=== PATIENT | female | born 1980 | race African-American/Black ===

== ENCOUNTER 2018-03-18 11:45 | Emergency (ER) | payer MEDICAID ==
[2018-03-18] MEDS ORDERED: DIPHENHYDRAMINE HCL 50 MG/ML VIAL IV ONE (12:31)
[2018-03-18] MEDS ORDERED: METOCLOPRAMIDE HCL INJ/PF 10 MG/2 ML SDV IV ONE (12:31)
[2018-03-18] MEDS ORDERED: DEXAMETHASONE 4 MG TABLET PO ONE (12:32)
[2018-03-18] MEDS ORDERED: ACETAMINOPHEN 325 MG TABLET PO ONE (12:32)
[2018-03-18] MEDS ORDERED: NORMAL SALINE 1000 ML 1,000 ML IV ONE (12:32)
--- NOTE | 2018-03-18 12:35 | ER Document Report ---
ED General - General Chief Complaint: Headache >24 hrs old Stated Complaint: HEADACHE Time Seen by Provider: 03/18/18 12:31 Mode of Arrival: Ambulatory Information source: Patient Notes: 37-year-old female with no reported past medical history presents with complaint of right-sided headache, right ear pain that started 3 days prior to arrival. Patient describes the pain as intermittent, throbbing and not relieved with aspirin for which she took once. She denies any fever, chills, sore throat, nasal congestion, blurred vision, weakness, slurred speech, head injury. She denies sick contacts. She is otherwise healthy and takes no medications daily. TRAVEL OUTSIDE OF THE [place] IN LAST 30 DAYS: No - HPI Onset: Other Onset/Duration: Gradual, Intermittent Quality of pain: Burning, Throbbing Severity: Moderate Associated symptoms: Earache, Headache. denies: Chest pain, Nonproductive cough , Productive cough, Fever, Nausea, Vomiting Exacerbated by: Denies Relieved by: Denies Similar symptoms previously: Yes Recently seen / treated by doctor: No - Related Data Allergies/Adverse Reactions: No Known Allergies Allergy (Verified 03/18/18 12:21) Past Medical History - General Information source: Patient, [facility] Records - Social History Smoking Status: Current Every Day Smoker Cigarette use (# per day): Yes - 3 Chew tobacco use (# tins/day): No Smoking Education Provided: Yes - Smoking cessation counseling was provided for 4 minutes at the bedside Frequency of alcohol use: None Drug Abuse: None Lives with: Family Family History: Reviewed & Not Pertinent Patient has suicidal ideation: No Patient has homicidal ideation: No - Medical History Medical History: Negative Renal/ Medical History: Denies: Hx Peritoneal Dialysis Past Surgical History: Reports: Hx Orthopedic Surgery - right hip Review of Systems - Review of Systems Notes: REVIEW OF SYSTEMS: CONSTITUTIONAL : Denies fever, or sweats. Denies recent illness. Denies weight loss, recent hospitalizations. EENT: Denies visual changes, eye pain. Denies sore throat, oral lesions, difficulty swallowing. CARDIOVASCULAR: Denies chest pain. Denies palpitations. Denies lower extremity edema. RESPIRATORY: Denies cough. Denies shortness of breath, wheezing. GASTROINTESTINAL: Denies abdominal pain or distention. Denies nausea, vomiting , or diarrhea. Denies blood in vomitus, stools, or per rectum. Denies black, tarry stools. Denies constipation. GENITOURINARY: Denies difficulty urinating, painful urination, frequency, blood in urine, or vaginal discharge. MUSCULOSKELETAL: Denies back or neck pain or stiffness. Denies joint pain or swelling. SKIN: Denies rash, lesions or sores. HEMATOLOGIC : Denies easy bruising or bleeding. LYMPHATIC: Denies swollen glands. NEUROLOGICAL: Denies confusion or altered mental status. Denies loss of consciousness. Denies dizziness or lightheadedness. Denies weakness or paralysis. Denies problems difficulty with ambulation, slurred speech. Denies sensory loss, numbness, or tingling. Denies seizures. PSYCHIATRIC: Denies anxiety or stress. Denies depression, suicidal ideation, or homicidal ideation. Denies visual or auditory hallucinations. Constitutional: Fever Physical Exam - Vital signs Vitals: Pulse Resp BP Pulse Ox 72 16 121/50 L 100 03/18/18 12:02 03/18/18 12:02 03/18/18 12:02 03/18/18 12:02 - Notes Notes: Presentation of a headache that appears to be most consistent with tension versus migrainous type headache. Headache was not maximal in onset, patient has no focal neurologic deficits, no nuchal rigidity, vital signs within normal limits, no papilledema, and patient is overall well in appearance. Based on clinical history and examination I do not suspect an acute subarachnoid hemorrhage, dural venous sinus thrombosis, acute meningitis, or intercranial mass. Given my low clinical suspicion for any acute life-threatening etiology, I do not feel advanced neuro imaging or laboratory testing is indicated at this time. Will proceed with headache cocktail and reassess. Patient received IV fluids, Reglan, Benadryl, Decadron and Toradol during her ED course. On reevaluation patient is sleeping soundly and when she awoke she reported an improvement of her earache and headache. Patient was evaluated and treated as appropriate for the patient's presenting symptoms and complaint, with consideration of any critical or life threatening conditions that may be associated with their obtained history and exam as noted above. All results were discussed with patient. Patient provided the opportunity to ask questions, and express concerns. Patient was educated on treatments based on their presumed diagnosis as noted above. At this time we will discharge the patient with return precautions and follow-up recommendations. Verbal discharge instructions given a the bedside. Medication warnings reviewed. Patient is in agreement with this plan and has verbalized understanding of return precautions. After careful consideration I feel that that patient can be safely discharged from the emergency department, they were advised to followup with a primary care physician in 2-3 days. Dictation on this chart was performed using voice recognition software and may result in unintended grammatical, spelling, syntax or errors. Course - Vital Signs Vital signs: Temp Pulse Resp BP Pulse Ox 97.7 F 72 18 140/81 H 100 03/18/18 13:58 03/18/18 13:58 03/18/18 13:58 03/18/18 13:58 03/18/18 13:58 Discharge - Discharge Clinical Impression: Ear pain, right, Elevated blood pressure reading Headache Qualifiers: Headache type: unspecified Headache chronicity pattern: unspecified pattern Intractability: not intractable Qualified Code(s): R51 - Headache Condition: Good Disposition: HOME, SELF-CARE Instructions: Headache ([facility]) Additional Instructions: You have been seen in the Emergency Department (ED) for a headache. Please use Tylenol (acetaminophen) or Motrin (ibuprofen), Reglan and Benadryl as needed for symptoms, but only as written on the box. As we have discussed, please follow up with your primary care doctor as soon as possible regarding today's ED visit and your headache symptoms. Call your doctor or return to the ED if you have a worsening headache, sudden and severe headache, confusion, slurred speech, facial droop, weakness or numbness in any arm or leg, extreme fatigue, or other symptoms that concern you. Prescriptions: Metoclopramide HCl [Reglan 10 mg Tablet] 1 - 2 tab PO Q8H PRN #10 tablet PRN Reason: Forms: Elevated Blood Pressure, Smoking Cessation Education, Return to Work
[2018-03-18] MEDS ORDERED: PSEUDOEPHEDRINE HCL 30 MG TABLET PO ONE (14:00)
[2018-03-18] MEDS ORDERED: KETOROLAC TROMETHAMINE INJ/PF 30 MG/1 ML SDV IV ONE (14:00)
[2018-03-18] MEDS ORDERED: LORAZEPAM 1 MG TABLET PO ONE (14:01)
[2018-03-18 15:06] VITALS: BP 112/61
== END 2018-03-18 15:07 | disposition home or self-care (01) ==
LOC: ER 11:45
DX: R51 Headache (principal); H92.01 Otalgia, right ear; R03.0 Elevated blood-pressure reading, without diagnosis of hypertension; F17.210 Nicotine dependence, cigarettes, uncomplicated; Z71.6 Tobacco abuse counseling
CPT/HCPCS: 99406; 99284; 96361; 96374; 96375; J3490 ×2; J1200; J1885; J2765; J7030

== ENCOUNTER 2018-03-18 23:32 | Emergency (ER) | payer MEDICAID ==
[2018-03-19] MEDS ORDERED: CARBAMAZEPINE 200 MG TABLET PO ONE (00:42)
[2018-03-19] MEDS ORDERED: CARBAMAZEPINE 200 MG TABLET ONE (01:06)
--- NOTE | 2018-03-19 01:23 | RADIOLOGY REPORT (SQ) ---
CT HEAD WITHOUT IV CONTRAST HISTORY: Right facial pain, presumed trigeminal neuralgia. COMPARISON: None. TECHNIQUE: CT scan of the brain without IV contrast. This exam was performed according to our departmental dose-optimization program, which includes automated exposure control, adjustment of the mA and/or kV according to patient size and/or use of iterative reconstruction technique. FINDINGS: The ventricles, cisterns, and sulci are age-appropriate. No focal white matter lesions are seen. The fried-white matter differentiation is preserved without evidence of acute territorial infarction. No intracranial hemorrhage, midline shift, or extra-axial fluid collection is identified. The paranasal sinuses and mastoid air cells are clear. Incidentally noted pneumatization of petrous apices are seen. The calvarium is intact. IMPRESSION: No acute intracranial abnormality.
[2018-03-19] MEDS ORDERED: METOCLOPRAMIDE HCL 10 MG TABLET PO ONE (02:23)
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
[2018-03-19] MEDS ORDERED: HYDROCODONE/ACETAMINOPHEN 5-325 MG (6 TAB/ER DISP) PO PRN (03:48)
[2018-03-19 03:52] VITALS: BP 123/75
== END 2018-03-19 04:00 | disposition home or self-care (01) ==
LOC: ER 23:32
DX: R51 Headache (principal); T45.0X6A Underdosing of antiallergic and antiemetic drugs, initial encounter; Z91.128 Patient's intentional underdosing of medication regimen for other reason; Z91.14 Patient's other noncompliance with medication regimen; F17.200 Nicotine dependence, unspecified, uncomplicated; Z87.820 Personal history of traumatic brain injury
CPT/HCPCS: 99284; 70450; J3490 ×2

== ENCOUNTER 2018-07-09 21:59 | Emergency (ER) | payer OTHER, BC ==
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
[2018-07-10 02:46] LABS: APPEARANCE,URINE SLIGHTLY-CLOUDY; BILIRUBIN,URINE NEGATIVE (NEGATIVE); COLOR,URINE YELLOW; GLUCOSE, URINE NEGATIVE (NEGATIVE); KETONES,URINE NEGATIVE (NEGATIVE); LEUKOCYTE ESTERASE,URINE NEGATIVE (NEGATIVE); NITRITE,URINE NEGATIVE (NEGATIVE); PROTEIN,URINE NEGATIVE (NEGATIVE); URINE SPECIFIC GRAVITY 1.017
[2018-07-10] MEDS ORDERED: KETOROLAC TROMETHAMINE 60 MG/2 ML SDV IM ONE (02:48)
--- NOTE | 2018-07-10 03:49 | RADIOLOGY REPORT (SQ) ---
EXAM DESCRIPTION: XR HIP 2 OR MORE VIEWS COMPLETED DATE/TME: 07/10/2018 02:47 CLINICAL HISTORY: 37 years Female, Pain COMPARISON: None. Findings: Osteotomy plate and screw fixation of the right acetabulum. Mild osteoarthritis of the right hip joint.. Bones, joints, and soft tissues of the RIGHT XR HIP 2 OR MORE VIEWS appear otherwise unremarkable. IMPRESSION: No acute findings.
--- NOTE | 2018-07-10 04:02 | RADIOLOGY REPORT (SQ) ---
EXAM DESCRIPTION: XR LUMBAR SPINE ANTEROPOSTERIOR, LATERAL, AND OBLIQUES COMPLETED DATE/TME: 07/10/2018 02:48 CLINICAL HISTORY: 37 years Female, Back Pain COMPARISON: None. Findings: Normal alignment and curvature. Vertebral and intervertebral heights are maintained. Partial visualization of hardware fixation at the right iliac ala. Extraspinal structures are grossly intact. IMPRESSION: No acute findings of XR LUMBAR SPINE ANTEROPOSTERIOR, LATERAL, AND OBLIQUES. .
--- NOTE | 2018-07-10 04:31 | RADIOLOGY REPORT (SQ) ---
EXAM DESCRIPTION: XR KNEE 3 VIEWS COMPLETED DATE/TME: 07/10/2018 02:47 CLINICAL HISTORY: 37 years Female, Pain COMPARISON: None. Findings: 1.1 cm x 0.3 cm ossicular calcification at the medial aspect of the right medial femoral condyle may indicate chronic medial collateral ligamentous injury. Minimal osteophytosis of the lateral femoral condyle. Bones, joints, and soft tissues of the RIGHT XR KNEE 3 VIEWS appear otherwise unremarkable. IMPRESSION: No acute findings.
[2018-07-10 04:48] VITALS: BP 106/53
== END 2018-07-10 05:00 | disposition home or self-care (01) ==
LOC: ER 21:59
DX: M54.5 Low back pain (principal); M25.551 Pain in right hip; M25.561 Pain in right knee; V43.52XA Car driver injured in collision with other type car in traffic accident, initial encounter
CPT/HCPCS: 99283; 96372; 81025; 81001; 73502; 73562; 72110; J1885

== ENCOUNTER 2018-09-01 23:39 | Emergency (ER) | payer BC, MEDICAID, OTHER ==
[2018-09-02] MEDS ORDERED: ACETAMINOPHEN 325 MG TABLET PO ONE (01:52)
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
[2018-09-02 02:33] LABS: APPEARANCE,URINE CLEAR; BILIRUBIN,URINE NEGATIVE (NEGATIVE); COLOR,URINE YELLOW; GLUCOSE, URINE NEGATIVE (NEGATIVE); KETONES,URINE NEGATIVE (NEGATIVE); LEUKOCYTE ESTERASE,URINE NEGATIVE (NEGATIVE); NITRITE,URINE NEGATIVE (NEGATIVE); PROTEIN,URINE NEGATIVE (NEGATIVE); URINE SPECIFIC GRAVITY 1.011; UROBILINOGEN,URINE NEGATIVE mg/dL (<2.0)
--- NOTE | 2018-09-02 06:55 | ER Document Report ---
ED Headache - General Chief Complaint: Headache Stated Complaint: HEADACHE Time Seen by Provider: 09/02/18 01:49 Mode of Arrival: Ambulatory Notes: 37-year-old female no significant past medical history other than hypertension to the emergency department chief complaint of headache. Not the worst headache of her life. Not sudden onset. Indolent over the last week. Denies any fever, chills, sweats. States that she does have some body aches but no other major symptoms. Some photophobia. Some mild nausea located in the temples and frontal area. Denies any large nasal discharge, no sore throat or other issues at this time. TRAVEL OUTSIDE OF THE [place] IN LAST 30 DAYS: No - HPI Patient complains to provider of: "Migraine" Onset was: Cannot pinpoint Timing: Still present Quality of pain: Achy - Related Data Allergies/Adverse Reactions: No Known Allergies Allergy (Verified 07/10/18 02:32) Past Medical History - General Information source: Patient - Social History Smoking Status: Current Some Day Smoker Cigarette use (# per day): Yes Frequency of alcohol use: None Drug Abuse: None Lives with: Family Family History: Reviewed & Not Pertinent Patient has suicidal ideation: No Patient has homicidal ideation: No Renal/ Medical History: Denies: Hx Peritoneal Dialysis Past Surgical History: Reports: Hx Orthopedic Surgery - right hip Review of Systems - Review of Systems Notes: Constitutional: denies: Chills, Diaphoresis, Fever, Malaise, Weakness EENT: denies: Eye discharge, Blurred vision, Tearing, Double vision, Nose congestion, Nose discharge, Throat swelling, Mouth pain Cardiovascular: denies: Palpitations, Heart racing, Orthopnea, Dyspnea, Chest pain Respiratory: denies: Cough, Hurts to breathe, Wheezing, Shortness of breath Gastrointestinal: denies: Abdominal pain, Diarrhea, Nausea, Vomiting, Black sto ols, bright red blood in stool Genitourinary: denies: Burning, Dysuria, Discharge, Frequency, Flank pain, Hematuria Musculoskeletal: denies: Joint pain, Joint swelling, Muscle pain, Muscle stiffness, back pain Hematologic/Lymphatic: denies: Anemia, Easy bleeding, Easy bruising, Blood clots Neurological/Psychological: denies: Confusion, Dementia, Depression, Loss of consciousness. Positive for headache Skin: No lesions, no masses, no skin breakdown, no abscesses Physical Exam - Vital signs Vitals: Temp Pulse Resp BP Pulse Ox 99.8 F 103 H 20 134/76 H 99 09/02/18 00:32 09/02/18 00:32 09/02/18 00:32 09/02/18 00:32 09/02/18 00:32 Interpretation: Normal - General General appearance: Appears well, Alert - HEENT Head: Normocephalic, Atraumatic Eyes: Normal Conjunctiva: Normal Pupils: PERRL Ears: Normal Tympanic membrane: Normal Mucous membranes: Normal Pharynx: Normal Neck: Normal. No: Brudzinski, Kernig's, Lymphadenopathy, Meningismus, Neck mass - Respiratory Respiratory status: No respiratory distress Chest status: Nontender Breath sounds: Normal Chest palpation: Normal - Cardiovascular Rhythm: Regular Heart sounds: Normal auscultation Murmur: No - Abdominal Inspection: Normal Distension: No distension Bowel sounds: Normal Tenderness: Nontender Organomegaly: No organomegaly - Back Back: Normal, Nontender - Extremities General upper extremity: Normal inspection, Nontender, Normal color, Normal ROM, Normal temperature General lower extremity: Normal inspection, Nontender, Normal color, Normal ROM, Normal temperature, Normal weight bearing. No: Luly's sign - Neurological Neuro grossly intact: Yes Cognition: Normal Orientation: AAOx4 Yariel Coma Scale Eye Opening: Spontaneous Yariel Coma Scale Verbal: Oriented Yariel Coma Scale Motor: Obeys Commands [place] Coma Scale Total: 15 Speech: Normal Motor strength normal: LUE, RUE, LLE, RLE Sensory: Normal - Psychological Associated symptoms: Normal affect, Normal mood - Skin Skin Temperature: Warm Skin Moisture: Dry Skin Color: Normal Course - Re-evaluation Re-evalutation: 09/02/18 11:01 Patient describes a headache that has been indolent for the last week. No meningismus signs or symptoms. No fever here. Temperature checked multiple times by myself. Patient responded quite well to migraine treatment. Did not indicate there is any other major neurological symptoms, or other symptoms that would be concerning for subarachnoid hemorrhage or meningitis. At this time I am recommending patient be discharged in stable condition and his symptoms return to re-return to the emergency department for repeat evaluation. Laboratory 09/02/18 01:53 Urine Color YELLOW Urine Appearance CLEAR Urine pH 7.0 Ur Specific [place] 1.011 Urine Protein NEGATIVE Urine Glucose (UA) NEGATIVE Urine Ketones NEGATIVE Urine Blood NEGATIVE Urine Nitrite NEGATIVE Urine Bilirubin NEGATIVE Urine Urobilinogen NEGATIVE Ur Leukocyte Esterase NEGATIVE Urine WBC (Auto) 0 Urine RBC (Auto) 0 Squamous Epi Cells Auto 4 Urine Ascorbic Acid NEGATIVE Urine HCG, Qual NEGATIVE - Vital Signs Vital signs: Temp Pulse Resp BP Pulse Ox 98.2 F 81 18 112/55 L 100 09/02/18 06:21 09/02/18 06:21 09/02/18 06:21 09/02/18 06:21 09/02/18 06:21 Discharge - Discharge Clinical Impression: Headache Qualifiers: Headache type: unspecified Headache chronicity pattern: unspecified pattern Intractability: not intractable Qualified Code(s): R51 - Headache Condition: Good Disposition: HOME, SELF-CARE Instructions: Antinausea Medication ([facility]), Use of Diphenhydramine, Headache ([facility]), Reglan ([facility]), Toradol Injection ([facility]) Additional Instructions: Please return immediately if your symptoms are getting worse, stiffness in the neck, high fever, chest pain or other symptoms. Forms: Return to Work
[2018-09-02] MEDS ORDERED: DIPHENHYDRAMINE HCL 50 MG/ML VIAL IV ONE (07:21)
[2018-09-02] MEDS ORDERED: KETOROLAC TROMETHAMINE INJ/PF 30 MG/1 ML SDV IV ONE (07:21)
[2018-09-02] MEDS ORDERED: METOCLOPRAMIDE HCL INJ/PF 10 MG/2 ML SDV IV ONE (07:21)
[2018-09-02 11:04] VITALS: BP 117/71
== END 2018-09-02 11:17 | disposition home or self-care (01) ==
LOC: ER 23:39
DX: R51 Headache (principal); R11.0 Nausea; I10 Essential (primary) hypertension; F17.210 Nicotine dependence, cigarettes, uncomplicated
CPT/HCPCS: 99284; 96374; 96375; 81025; 81001; J3490; J1200; J1885; J2765

== ENCOUNTER 2019-09-13 20:03 | Emergency (ER) | payer BC, MEDICAID, OTHER ==
--- NOTE | 2019-09-13 20:20 | ER Document Report ---
ED Medical Screen (RME) - General Chief Complaint: Vag Bleeding, +preg <12wks Stated Complaint: VAGINAL BLEEDING PREG 6 WKS Time Seen by Provider: 09/13/19 20:14 Mode of Arrival: Ambulatory Information source: Patient Notes: Patient is a 38-year-old female comes emergency room stating that she has done 5 home test and all 5 have been positive. She is 38-year-old female she states that last evening she started with a little cramping and when she wiped she noticed some bloody tinged material on the tissue. That is gone on and off throughout today she has had minimal cramping today and denies any nausea vomiting or diarrhea. She also states that her last menstrual period was on 07/31/2019. She is 1 para 1 Physical examination: Patient is a well-nourished well-developed 38-year-old female no apparent distress on physical exam. : Cardiac showed slightly tachycardic at 101 bpm with no murmur noted. Lungs: Bilateral breath sounds with breath sounds increased clear to auscultation. Abdomen: Bowel sounds present all 4 quads. Nontender to palpate throughout. This is done while patient is in a sitting position. I have greeted and performed a rapid initial assessment of this patient. Comprehensive ED assessment and evaluation the patient, analysis of the test results and completion of the medical decision-making process will be conducted by an additional ED provider. TRAVEL OUTSIDE OF THE [place] IN LAST 30 DAYS: No - Related Data Allergies/Adverse Reactions: No Known Allergies Allergy (Verified 09/13/19 20:14) Past Medical History Renal/ Medical History: Denies: Hx Peritoneal Dialysis Past Surgical History: Reports: Hx Orthopedic Surgery - right hip Physical Exam - Vital signs Vitals: Temp Pulse Resp BP Pulse Ox 98.5 F 101 H 14 149/91 H 100 09/13/19 20:06 09/13/19 20:06 09/13/19 20:06 09/13/19 20:06 09/13/19 20:06 Course - Vital Signs Vital signs: Temp Pulse Resp BP Pulse Ox 98.5 F 101 H 14 149/91 H 100 09/13/19 20:06 09/13/19 20:06 09/13/19 20:06 09/13/19 20:06 09/13/19 20:06
[2019-09-13 20:55] LABS: ABSOLUTE BASOPHILS # (AUTO) 0.1 10^3/uL (0.0-0.2); ABSOLUTE EOSINOPHILS # (AUTO) 0.3 10^3/uL (0.0-0.6); ABSOLUTE LYMPHOCYTES (AUTO) 2.6 10^3/uL (0.5-4.7); ABSOLUTE MONOCYTES (AUTO) 0.4 10^3/uL (0.1-1.4); EOSINOPHILS % (AUTO) 3.2 % (0-6); HEMATOCRIT 39.7 % (36.0-47.0); HEMOGLOBIN 13.9 g/dL (12.0-15.5); LYMPHOCYTES % (AUTO) 31.1 % (13-45); MEAN CORPUSCULAR HEMOGLOBIN 30.3 pg (27.0-33.4); MEAN CORPUSCULAR HGB CONC 35.1 g/dL (32.0-36.0); MEAN CORPUSCULAR VOLUME 86 fl (80-97); MONOCYTES % (AUTO) 4.3 % (3-13); PLATELET COUNT 296 10^3/uL (150-450); RED CELL DISTRIBUTION WIDTH 14.3 % (11.5-14.0); SEGMENTED NEUTROPHILS % (AUTO) 60.4 % (42-78); TOTAL CELLS COUNTED % (AUTO) 100 %; WHITE BLOOD COUNT 8.2 10^3/uL (4.0-10.5)
[2019-09-13 21:07] LABS: BILIRUBIN,URINE NEGATIVE (NEGATIVE); GLUCOSE, URINE NEGATIVE (NEGATIVE); KETONES,URINE NEGATIVE (NEGATIVE); PROTEIN,URINE 30 mg/dL (NEGATIVE); URINE SPECIFIC GRAVITY 1.001; UROBILINOGEN,URINE NEGATIVE mg/dL (<2.0)
[2019-09-13 21:08] LABS: APPEARANCE,URINE SLIGHTLY HAZY; COLOR,URINE PINK
[2019-09-13 21:13] LABS: ALBUMIN 3.9 g/dL (3.5-5.0); ALKALINE PHOSPHATASE 58 U/L (38-126); ANION GAP 8 (5-19); ASPARTATE AMINO TRANSFERASE 22 U/L (14-36); BILIRUBIN,TOTAL 0.4 mg/dL (0.2-1.3); BLOOD UREA NITROGEN 7 mg/dL (7-20); CALCIUM 8.9 mg/dL (8.4-10.2); CARBON DIOXIDE 22 mmol/L (22-30); CHLORIDE 106 mmol/L (98-107); GLUCOSE 112 mg/dL (75-110); POTASSIUM 3.8 mmol/L (3.6-5.0); TOTAL PROTEIN 6.7 g/dL (6.3-8.2)
--- NOTE | 2019-09-13 22:07 | RADIOLOGY REPORT (SQ) ---
EXAM DESCRIPTION: US TRANSVAGINAL COMPLETED DATE/TME: 09/13/2019 20:19 CLINICAL HISTORY: 38 years, Female, Dysfunctional uterine bleeding during COMPARISON: None. TECHNIQUE: Emergent transvaginal ultrasound LIMITATIONS: None. FINDINGS: The uterus measures 9.5 x 5.1 x 5.1 cm. The endometrium measures 17 mm in thickness. No intrauterine gestational sac. Suspected blood products and complex fluid in the endometrial canal. Neither ovary is visualized likely due to their position in the pelvis. No adnexal cyst or mass. No free fluid IMPRESSION: There is no intrauterine gestational sac. No discrete adnexal mass, however ectopic cannot be excluded based on this exam. Correlate with beta hCG levels. Clinical follow-up recommended copyright 2010 [employer]- All Rights Reserved
--- NOTE | 2019-09-14 00:41 | ER Document Report ---
ED General - General Chief Complaint: Vag Bleeding, +preg <12wks Stated Complaint: VAGINAL BLEEDING PREG 6 WKS Time Seen by Provider: 09/13/19 20:14 Primary Care Provider: Gynecology [Provider Group] - Follow up as needed [facility] [Provider Group] - Follow up as needed [facility] [Provider Group] - Follow up as needed Mode of Arrival: Ambulatory TRAVEL OUTSIDE OF THE [place] IN LAST 30 DAYS: No - HPI Notes: 38-year-old female G2, P1 LMP 1720 presents with low volume vaginal bleeding/spotting and some mild midline pelvic cramping pain for the past 2 days, has not needed to use sanitary pads. Patient found to be on the home upreg few weeks ago. Patient has not had ultrasound confirmed IUP this . Patient denies discharge, fever, urinary symptoms, prior complications, flank pain, dizziness, syncope, chest pain, shortness of breath, bleeding diatheses. Patient denied smoking. - Related Data Allergies/Adverse Reactions: No Known Allergies Allergy (Verified 09/13/19 20:14) Past Medical History - General Information source: Patient, [facility] Records Last Menstrual Period: 07/31/2019 - Social History Smoking Status: Current Every Day Smoker Frequency of alcohol use: None Drug Abuse: None Family History: Reviewed & Not Pertinent Patient has homicidal ideation: No Renal/ Medical History: Denies: Hx Peritoneal Dialysis Past Surgical History: Reports: Hx Orthopedic Surgery - right hip Review of Systems - Review of Systems Notes: REVIEW OF SYSTEMS: CONSTITUTIONAL : Denies fever, chills, or sweats. EENT: Denies recent cold/sinus symptoms, denies throat pain CARDIOVASCULAR: Denies chest pain, [employer]: Denies cough, denies shortness of breath. GASTROINTESTINAL: Denies abdominal pain, nausea/vomiting. GENITOURINARY: Denies difficulty urinating, painful urination. FEMALE GENITOURINARY: +abnormal vaginal bleeding, -vaginal discharge. MUSCULOSKELETAL: Denies neck pain, back pain. SKIN: Denies rash or skin lesions. HEMATOLOGIC : Denies easy bruising or bleeding. LYMPHATIC: Denies swollen, enlarged glands. NEUROLOGICAL: Denies headache, denies change in gait. PSYCHIATRIC: Denies anxiety or stress or depression. Physical Exam - Vital signs Vitals: Temp Pulse Resp BP Pulse Ox 98.5 F 101 H 14 149/91 H 100 09/13/19 20:06 09/13/19 20:06 09/13/19 20:06 09/13/19 20:06 09/13/19 20:06 - Notes Notes: PHYSICAL EXAMINATION: GENERAL: Well-appearing, well-nourished and in no acute distress. HEAD: Atraumatic, normocephalic. EYES: Pupils equal round and appropriate constriction, sclera anicteric, conjunctiva are normal. ENT: nares patent, moist mucous membranes. NECK: Normal range of motion, supple without lymphadenopathy LUNGS: Breath sounds clear to auscultation bilaterally and equal. No wheezes rales or rhonchi. HEART: Regular rate and rhythm without murmurs ABDOMEN: Soft, nontender, no guarding, no masses, no CVAT PELVIC: Normal external genitalia, scant dark blood in vaginal vault, no discharge, office closed, no CMT, no adnexal tenderness or masses EXTREMITIES: Normal range of motion, no pitting or edema. No cyanosis. NEUROLOGICAL: Awake, alert, conversing appropriately, moves all extremities spontaneously. PSYCH: Normal mood, normal affect. SKIN: Warm, Dry, normal turgor, no rashes or lesions noted. Course - Re-evaluation Re-evalutation: 09/14/19 00:40 Vaginal bleeding and pelvic pain in , mild pain and low volume vaginal bleeding, patient very well-appearing, initially tachycardic on triage vitals but resolved at time of my exam without any intervention, who had likely been secondary to taking vitals immediately after exertion. Obtain the ultrasound to rule out ectopic and confirm IUP, unable to confirm IUP but hCG is in discriminatory zone so this is not an unexpected result. Patient had extensive discussion with patient regarding the importance of ruling out ectopic and importance of following up in 48 hours for repeat beta and possibly repeat ultrasound. Given extensive return to ED precautions which patient demonstrated understanding of. Rh+. Patient ready for discharge with outpatient follow-up, instructed patient to return to ED if unable to obtain 48-hour [facility] follow-up. - Vital Signs Vital signs: Temp Pulse Resp BP Pulse Ox 98.1 F 75 18 137/89 H 99 09/14/19 01:04 09/14/19 01:04 09/14/19 01:04 09/14/19 01:04 09/14/19 01:04 - Laboratory Result Diagrams: 09/13/19 20:37 09/13/19 20:37 Laboratory results interpreted by me: 09/13/19 09/13/19 09/13/19 20:30 20:37 20:37 RDW 14.3 H Sodium 136.4 L Glucose 112 H Beta HCG, Quant 1252.90 H Urine Protein 30 H Urine Blood LARGE H Urine HCG, Qual POSITIVE H Discharge - Discharge Clinical Impression: Vaginal bleeding affecting early Condition: Stable Disposition: HOME, SELF-CARE Additional Instructions: Vaginal Bleeding You are having an episode of abnormal bleeding. Causes of abnormal vaginal bleeding can include miscarriage or tubal , tumors such as cancer or benign fibroids, medication effects, or hormone imbalance. Testing can eliminate unsuspected , tumors, or infection as a cause. Pelvic Pain in Lower abdominal pain during can have many causes. We look for serious causes such as appendicitis, tubal , miscarriage, placental separation, or urinary tract infection. Less serious causes of pain include corpus luteum cyst (ovarian cyst of ) or stretching of the pelvic tissues by the enlarging uterus. Sometimes the pain comes from the bowels. If no specific cause for the pain is found, we attribute the pain to stretching of the uterine ligaments. This is called "round ligament strain." It is not dangerous. Just rest until the pain goes away. Call us or come back for reexamination if any problems occur, such as: (1) Pain that becomes more severe, steady, or becomes concentrated in one specific area. Also, pain that is more severe with movement or coughing. (2) Vomiting that persists or becomes more frequent. (3) Blood in the vomitus, urine, or bowel movements. Blood in the stool may have a tarry or black appearance. (4) Shaking chills or fever greater than 100 degrees. (5) The abdomen becomes more distended or swollen. (6) Bowel movements cease. (7) Vaginal bleeding. Follow-up with [facility] doctor in 48 hours, if unable to follow-up with [facility] doctor in 48 hours return to ED then. Return to ED immediately if you have worsening bleeding soaking a pad per hour, dizziness, fainting, chest pain, trouble breathing, fever, or any other worsening or alarming symptoms. Blood pressure was 149/91 in the emergency department. This is high. Have this rechecked by your primary doctor within 2 weeks. High blood pressure is associated with heart attack stroke and . Prescriptions: Vit/Iron Fum/Folic AC [ Tablet] 1 each PO QAM #7 tablet Referrals: Gynecology [Provider Group] - Follow up as needed [facility] [Provider Group] - Follow up as needed [facility] [Provider Group] - Follow up as needed
[2019-09-14 01:05] VITALS: BP 137/89
== END 2019-09-14 01:05 | disposition home or self-care (01) ==
LOC: ER 20:03
DX: O20.8 Other hemorrhage in early pregnancy (principal); O26.891 Other specified pregnancy related conditions, first trimester; R10.2 Pelvic and perineal pain; O99.331 Smoking (tobacco) complicating pregnancy, first trimester; F17.200 Nicotine dependence, unspecified, uncomplicated; Z3A.01 Less than 8 weeks gestation of pregnancy
CPT/HCPCS: 36415; 76817; 80053; 81001; 81025; 84702; 85025; 86900; 86901; 93976; 99284

== ENCOUNTER 2019-09-15 16:59 | Emergency (ER) | payer BC ==
--- NOTE | 2019-09-15 17:26 | ER Document Report ---
ED Medical Screen (RME) - General Mode of Arrival: Wheelchair Information source: Patient TRAVEL OUTSIDE OF THE [place] IN LAST 30 DAYS: No - General Chief Complaint: Vag Bleeding, +preg <12wks Stated Complaint: CRAMPING/VAGINAL BLEEDING Time Seen by Provider: 09/15/19 17:20 Notes: HPI; 38-year-old 2 para 1 approximately 6-week female presents to the emergency room complaining of worsening pelvic cramping. Patient was seen here Saturday evening for light vaginal bleeding and pain. Ultrasound could not rule out ectopic. Patient was scheduled to follow-up with her OB tomorrow for repeat quant and ultrasound but states the pain got more severe today. She did take Tylenol around 2 PM without relief. States she has not soaked a pad in full 24 hours. PE: Alert and oriented x3, moderate distress noted. Lungs: Clear to auscultation without rales, rhonchi, wheezes. Heart: Regular rate and rhythm without murmurs, rubs, gallops. I have greeted and performed a rapid initial assessment of this patient. A comprehensive ED assessment and evaluation of the patient, analysis of test results and completion of the medical decision making process will be conducted by additional ED providers. I have specifically instructed the patient or family members with the patient to immediately return to any nursing staff should anything change in the patient's condition or with their chief complaint. (JASYHREE SPENCER) - Related Data Allergies/Adverse Reactions: No Known Allergies Allergy (Verified 09/13/19 20:14) Past Medical History Renal/ Medical History: Denies: Hx Peritoneal Dialysis Past Surgical History: Reports: Hx Orthopedic Surgery - right hip Physical Exam - Vital signs Vitals: Temp Pulse Resp BP Pulse Ox 97.8 F 73 20 143/84 H 100 09/15/19 17:04 09/15/19 17:04 09/15/19 17:04 09/15/19 17:04 09/15/19 17:04 Course - Vital Signs Vital signs: Temp Pulse Resp BP Pulse Ox 97.8 F 73 20 143/84 H 100 09/15/19 17:19 09/15/19 17:04 09/15/19 17:04 09/15/19 17:04 09/15/19 17:04
--- NOTE | 2019-09-15 18:04 | ER Document Report ---
ED General - General Chief Complaint: Abdominal Cramping Stated Complaint: CRAMPING/VAGINAL BLEEDING Time Seen by Provider: 09/15/19 17:20 Mode of Arrival: Wheelchair Information source: Patient Notes: triage notes 09/15/19 17:20 - ED Nursing Note by DYLAN AVILA Acct Num: [id number] : 1980 Patient Age: 38 Pt presents to the ED for c/o abdominal pain. Pt is approx. 6wks . Reports she was seen here 2days ago for vaginal bleeding and cramping. States abdominal cramping has significantly worsened today. Reports going through approx. 1pad today. Pt has not seen OB yet. Pt is A&Ox4, breaths e/u, NAD. Trinity notes HPI; 38-year-old 2 para 1 approximately 6-week female presents to the emergency room complaining of worsening pelvic cramping. Patient was seen here Saturday evening for light vaginal bleeding and pain. Ultrasound could not rule out ectopic. Patient was scheduled to follow-up with her OB tomorrow for repeat quant and ultrasound but states the pain got more severe today. She did take Tylenol around 2 PM without relief. States she has not soaked a pad in full 24 hours. PE: Alert and oriented x3, moderate distress noted. Lungs: Clear to auscultation without rales, rhonchi, wheezes. Heart: Regular rate and rhythm without murmurs, rubs, gallops. my notes 38-year-old black female arrives with intense 10 out of 10 left inguinal pain of 3-day duration. Patient reports she has had spotting on her pad for the last several days. She had ultrasound done here at [place] which was inconclusive. She is O+. She is G2, P1 with a 13-year-old daughter. Patient denies any trauma denies any vaginal discharge denies any history of ectopic or STDs. She denies any dysuria fever chills cough or cold or coronavirus contact. Currently this nation and the world is under coronavirus pandemic. TRAVEL OUTSIDE OF THE [place] IN LAST 30 DAYS: No - HPI Onset: Other - x 3 days Onset/Duration: Sudden, Persistent, Worse Quality of pain: Fullness, Throbbing - LLQ Severity: Severe Pain Level: 5 Associated symptoms: None Exacerbated by: Denies Relieved by: Denies Similar symptoms previously: No Recently seen / treated by doctor: Yes - Related Data Allergies/Adverse Reactions: No Known Allergies Allergy (Verified 09/13/19 20:14) Past Medical History - General Information source: Patient - Social History Smoking Status: Current Every Day Smoker Cigarette use (# per day): Yes Chew tobacco use (# tins/day): No Smoking Education Provided: Yes Frequency of alcohol use: None Drug Abuse: None Lives with: Family Family History: Reviewed & Not Pertinent Patient has suicidal ideation: No Patient has homicidal ideation: No Renal/ Medical History: Denies: Hx Peritoneal Dialysis Past Surgical History: Reports: Hx Orthopedic Surgery - right hip Review of Systems - Review of Systems Constitutional: No symptoms reported EENT: No symptoms reported Cardiovascular: No symptoms reported Respiratory: No symptoms reported Gastrointestinal: No symptoms reported Genitourinary: No symptoms reported. denies: Dysuria, Discharge, Frequency, Flank pain, Hematuria, Incontinence, Pain, Urgency, Retention Female Genitourinary: See HPI, - 6 weeks gravid Musculoskeletal: No symptoms reported Skin: No symptoms reported Hematologic/Lymphatic: No symptoms reported Neurological/Psychological: No symptoms reported Physical Exam - Vital signs Vitals: Temp Pulse Resp BP Pulse Ox 97.8 F 73 20 143/84 H 100 09/15/19 17:04 09/15/19 17:04 09/15/19 17:04 09/15/19 17:04 09/15/19 17:04 Interpretation: Normal - General General appearance: Alert - HEENT Head: Normocephalic, Atraumatic Eyes: Normal Pupils: PERRL - Respiratory Respiratory status: No respiratory distress Chest status: Nontender Breath sounds: Normal Chest palpation: Normal - Cardiovascular Rhythm: Regular Heart sounds: Normal auscultation Murmur: No - Abdominal Inspection: Normal Distension: No distension Bowel sounds: Normal Tenderness: Tender - LLQ on p/p - Rectal Stool: Other - deferred - Genitourinary Speculum exam: Other - Patient has speculum exam on Saturday which pt reports she was told her cervix was closed - Back Back: Normal - Extremities General upper extremity: Normal inspection General lower extremity: Normal inspection - Neurological Neuro grossly intact: Yes - Is normal Cognition: Normal Orientation: AAOx4 Yariel Coma Scale Eye Opening: Spontaneous Yariel Coma Scale Verbal: Oriented [place] Coma Scale Motor: Obeys Commands Yariel Coma Scale Total: 15 Speech: Normal Motor strength normal: LUE, RUE, LLE, RLE Sensory: Normal - Psychological Associated symptoms: Normal affect - Skin Skin Temperature: Warm Skin Moisture: Dry Skin Color: Normal Course - Vital Signs Vital signs: Temp Pulse Resp BP Pulse Ox 97.8 F 73 20 143/84 H 100 09/15/19 17:19 09/15/19 17:04 09/15/19 17:04 09/15/19 17:04 09/15/19 17:04 - Laboratory Result Diagrams: 09/15/19 17:40 Laboratory results interpreted by me: 09/15/19 09/15/19 09/15/19 17:40 17:40 19:10 RDW 14.6 H Seg Neutrophils % 79.2 H Beta HCG, Quant 1107.50 H Urine Protein 30 H Urine Blood LARGE H Ur Leukocyte Esterase MODERATE H - Diagnostic Test Radiology reviewed: Reports reviewed Critical Care Note - Critical Care Note Total time excluding time spent on procedures (mins): 90 Comments: I discussed this case with Dr. Yary Arias. She advises patient following up on and calling office tomorrow. Patient when advised of the lab and ultrasound findings reports [facility] I advised calling by telephone to the clinic. Patient's ultrasound was again negative for IUP and no adnexal mass. Dr. Arias feels she may be having miscarriage at this time. Patient also has UTI and will be treated with Macrobid and with [employer] [place] pack Discharge - Discharge Clinical Impression: Vaginal bleeding affecting early UTI (urinary tract infection) Qualifiers: Urinary tract infection type: acute cystitis Hematuria presence: without hematuria Qualified Code(s): N30.00 - Acute cystitis without hematuria Condition: Good Disposition: HOME, SELF-CARE Additional Instructions: Follow-up with Dr. Arias SURGICAL ASSIST on September. Since your appointment is for tomorrow call the office tomorrow and advise them of your visit today in the ER. Ultrasound was negative today for intrauterine and was negative for any adnexal mass. You were positive for a UTI urinary tract infection and antibiotics will be written for you for this week. Take medicines as directed encourage fluids Prescriptions: Nitrofurantoin Monohyd/M-Cryst [Macrobid 100 mg Capsule] 100 mg PO BID #14 cap Forms: Return to Work
[2019-09-15] MEDS ORDERED: NORMAL SALINE 1000 ML 1,000 ML IV ONE (18:32)
[2019-09-15] MEDS ORDERED: HYDROMORPHONE HCL INJ/PF 2 MG/ML AMPULE IV ONE (18:33)
[2019-09-15] MEDS ORDERED: ONDANSETRON HCL INJ/PF 4 MG/2 ML SDV IV ONE (18:33)
[2019-09-15 18:55] LABS: ABSOLUTE EOSINOPHILS # (AUTO) 0.1 10^3/uL (0.0-0.6); ABSOLUTE LYMPHOCYTES (AUTO) 1.3 10^3/uL (0.5-4.7); ABSOLUTE MONOCYTES (AUTO) 0.3 10^3/uL (0.1-1.4); ABSOLUTE NEUT (AUTO) 6.4 10^3/uL (1.7-8.2); BASOPHILS % (AUTO) 0.5 % (0-2); EOSINOPHILS % (AUTO) 0.7 % (0-6); HEMATOCRIT 42.7 % (36.0-47.0); HEMOGLOBIN 14.3 g/dL (12.0-15.5); LYMPHOCYTES % (AUTO) 16.4 % (13-45); MEAN CORPUSCULAR HEMOGLOBIN 29.5 pg (27.0-33.4); MEAN CORPUSCULAR HGB CONC 33.5 g/dL (32.0-36.0); MEAN CORPUSCULAR VOLUME 88 fl (80-97); MONOCYTES % (AUTO) 3.2 % (3-13); PLATELET COUNT 328 10^3/uL (150-450); RED BLOOD COUNT 4.85 10^6/uL (3.72-5.28); RED CELL DISTRIBUTION WIDTH 14.6 % (11.5-14.0); SEGMENTED NEUTROPHILS % (AUTO) 79.2 % (42-78); TOTAL CELLS COUNTED % (AUTO) 100 %; WHITE BLOOD COUNT 8.1 10^3/uL (4.0-10.5)
[2019-09-15 20:13] LABS: APPEARANCE,URINE SLIGHTLY-CLOUDY; BILIRUBIN,URINE NEGATIVE (NEGATIVE); COLOR,URINE RED; GLUCOSE, URINE NEGATIVE (NEGATIVE); KETONES,URINE NEGATIVE (NEGATIVE); LEUKOCYTE ESTERASE,URINE MODERATE (NEGATIVE); NITRITE,URINE NEGATIVE (NEGATIVE); PROTEIN,URINE 30 mg/dL (NEGATIVE); UROBILINOGEN,URINE NEGATIVE mg/dL (<2.0)
--- NOTE | 2019-09-15 20:22 | RADIOLOGY REPORT (SQ) ---
EXAM: First trimester OB ultrasound CLINICAL INDICATION: Vaginal bleeding. COMPARISON: Ultrasound dated 09/13/2019 TECHNIQUE: First trimester OB ultrasound was performed. FINDINGS: Uterus: The uterus measures 9.6 x 5.1 x 6.0 cm. The endometrium measures 9.4 mm. The cervix is closed and measures 2.4 cm in length. Oval area of decreased echogenicity in the posterior distal cervix is not significantly changed from the previous exam and may represent a small the both hands cyst. This area is complex and measures 1.0 x 0.4 x 1.0 cm. No gestational sac is seen. Ovaries and adnexa: The ovary measures 2.8 x 2.2 x 1.7 cm and contains a dominant follicle which measures 13 mm. Color flow is normal. Spectral waveforms are normal. The left ovary measures 2.6 x 1.7 x 1.9 cm and also is morphologically normal with normal color and spectral waveforms. Trace free fluid. IMPRESSION: No intrauterine is identified. No adnexal mass or free fluid.
[2019-09-15] MEDS ORDERED: NITROFURANTOIN MONOHYD/M-CRYST 100 MG CAPSULE PO ONE (21:42)
[2019-09-15] MEDS ORDERED: HYDROCODONE/ACETAMINOPHEN 5-325 MG (6 TAB/ER DISP) PO PRN (21:42)
[2019-09-15 22:10] VITALS: BP 138/87
== END 2019-09-15 22:09 | disposition home or self-care (01) ==
LOC: ER 16:59
DX: O20.9 Hemorrhage in early pregnancy, unspecified (principal); O23.11 Infections of bladder in pregnancy, first trimester; O99.331 Smoking (tobacco) complicating pregnancy, first trimester; F17.210 Nicotine dependence, cigarettes, uncomplicated; Z3A.01 Less than 8 weeks gestation of pregnancy
CPT/HCPCS: 99285; 96360; 36415; 84702; 85025; 81001; 76817; J7030; J8499